=== PATIENT | male | born 1965 | race Two or more races ===

== ENCOUNTER 2016-12-26 11:29 | Emergency (ER) | payer OTHER ==
[2016-12-26] MEDS ORDERED: Sodium Chloride 0.9% 2,000 ML IV ONE (11:52)
[2016-12-26] MEDS ORDERED: methylPREDNISolone Sodium Succinate 125 MG/2 ML SDV IVPUSH ONE (11:53)
--- NOTE | 2016-12-26 11:59 | EDM.PDOC ---
ED HPI GENERAL MEDICAL PROBLEM - General Chief Complaint: General Stated Complaint: PT WOULD LIKE TO CHECK IN Time Seen by Provider: 12/26/16 11:35 Source of Information: Reports: Patient History Limitations: Reports: No limitations - History of Present Illness INITIAL COMMENTS - FREE TEXT/NARRATIVE: History of present illness: [50-year-old male comes in presenting with complaints of exacerbation, as well as chronic dehydration. Patient indicates that he is excessively which he cannot seem to drink enough fluids to maintain hydrated status. Patient indicates when he feels dehydrated he requires IV hydration to rebalance him or he gets progressively sicker and his eczema gets worse.] Review of systems: As per history of present illness and below otherwise all systems reviewed and negative. Past medical history: As per history of present illness and as reviewed below otherwise noncontributory. Surgical history: As per history of present illness and as reviewed below otherwise noncontributory. Social history: No reported history of drug or alcohol abuse. Family history: As per history of present illness and as reviewed below otherwise noncontributory. Physical exam: HEENT: Atraumatic, normocephalic, pupils reactive, negative for conjunctival pallor or scleral icterus, mucous membranes moist, throat clear, neck supple, nontender, trachea midline. Lungs: Clear to auscultation, breath sounds equal bilaterally, chest nontender. Heart: S1S2, regular, negative for clicks, rubs, or JVD. Abdomen: Soft, nondistended, nontender. Negative for masses or hepatosplenomegaly. Negative for costovertebral tenderness. Pelvis: Stable nontender. Genitourinary: Deferred. Rectal: Deferred. Extremities: Atraumatic, negative for cords or calf pain. Neurovascular unremarkable. Neuro: Awake, alert, oriented. Cranial nerves II through XII unremarkable. Cerebellum unremarkable. Motor and sensory unremarkable throughout. Exam nonfocal. Skin: Areas on extremities as well as trunk and neck noted to have various stages of eczema. Diagnostics: [CBC, CMP, hemoglobin A1c] Therapeutics: [Liters of IV fluid] Impression: [Asthma exacerbation, dehydration,] Plan: [Medrol Dosepak, hydration here] Definitive disposition and diagnosis as appropriate pending reevaluation and review of above. right flank Pain Score (Numeric/FACES): 5 - Related Data Allergies Allergy/AdvReac Type Severity Reaction Status Date / Time No Known Allergies Allergy Verified 12/26/16 11:57 Home Meds: Home Meds methylPREDNISolone [Medrol] 4 mg PO DAILY #21 tab.ds.pk 12/26/16 [Rx] ED ROS GENERAL - Review of Systems Review Of Systems: See Below (See history of present illness) ED EXAM, GENERAL - Physical Exam Exam: See Below (History of present illness) Course - Vital Signs Last Recorded V/S: Last Vital Signs Temp 36.2 C 12/26/16 11:57 Pulse 85 12/26/16 11:57 Resp 18 12/26/16 11:57 BP 170/104 H 12/26/16 11:57 Pulse Ox 96 12/26/16 11:57 - Orders/Labs/Meds Orders: Active Orders 24 hr Category Date Time Status COMPREHENSIVE METABOLIC PN,CMP [CHEM] Stat Lab 12/26/16 11:57 Received Sodium Chloride 0.9% [Normal Saline] 2,000 ml Med 12/26/16 11:52 Active IV STAT Medication Orders Sodium Chloride (Normal Saline) 2,000 mls @ 999 mls/hr IV STAT ONE Stop: 12/26/16 13:52 Last Admin: 12/26/16 12:12 Dose: 999 mls/hr Labs: Laboratory Tests 12/26/16 12/26/16 Range/Units 11:57 11:57 WBC 6.64 (4.0-11.0) K/uL RBC 4.70 (4.50-5.90) M/uL Hgb 15.8 (13.0-17.0) g/dL Hct 44.0 (38.0-50.0) % MCV 93.6 (80.0-98.0) fL MCH 33.6 H (27.0-32.0) pg MCHC 35.9 (31.0-37.0) g/dL RDW Std Deviation 43.1 (28.0-62.0) fl RDW Coeff of Ade 13 (11.0-15.0) % Plt Count 274 (150-400) K/uL MPV 10.90 (7.40-12.00) fL Neut % (Auto) 34.9 L (48.0-80.0) % Lymph % (Auto) 51.5 H (16.0-40.0) % [place] % (Auto) 10.7 (0.0-15.0) % Eos % (Auto) 2.6 (0.0-7.0) % Baso % (Auto) 0.3 (0.0-1.5) % Neut # (Auto) 2.3 (1.4-5.7) K/uL Lymph # (Auto) 3.4 H (0.6-2.4) K/uL [place] # (Auto) 0.7 (0.0-0.8) K/uL Eos # (Auto) 0.2 (0.0-0.7) K/uL Baso # (Auto) 0.0 (0.0-0.1) K/uL Nucleated RBC % 0.0 /100WBC Nucleated RBCs # 0 K/uL Hemoglobin A1c 5.5 (0.0-6.0) % Meds: Medications Generic Name Dose Route Start Last Admin Trade Name Freq PRN Reason Stop Dose Admin Sodium Chloride 2,000 mls @ 999 mls/hr 12/26/16 11:52 12/26/16 12:12 Normal Saline IV 12/26/16 13:52 999 mls/hr STAT ONE Administration Discontinued Medications Generic Name Dose Route Start Last Admin Trade Name Freq PRN Reason Stop Dose Admin Methylprednisolone Sodium Succinate 125 mg 12/26/16 11:53 12/26/16 12:12 Solu-Medrol IVPUSH 12/26/16 11:54 125 mg ONETIME ONE Administration Departure - Departure Time of Disposition: 12:26 Disposition: Home, Self-Care 01 Condition: good Clinical Impression: Dehydration symptoms Eczema Qualifiers: Eczema type: unspecified Qualified Code(s): L30.9 - Dermatitis, unspecified Clinical Impression: (Ruled Out): Dehydration Prescriptions: methylPREDNISolone [Medrol] 4 mg PO DAILY #21 tab.ds.pk Forms: ED Department Discharge Additional Instructions: The following information is given to patients seen in the emergency department who are being discharged to home. This information is to outline your options for follow-up care. We provide all patients seen in our emergency department with a follow-up referral. The need for follow-up, as well as the timing and circumstances, are variable depending upon the specifics of your emergency department visit. If you don't have a primary care physician on staff, we will provide you with a referral. We always advise you to contact your personal physician following an emergency department visit to inform them of the circumstance of the visit and for follow-up with them and/or the need for any referrals to a consulting specialist. The emergency department will also refer you to a specialist when appropriate. This referral assures that you have the opportunity for follow-up care with a specialist. All of these measure are taken in an effort to provide you with optimal care, which includes your follow-up. Under all circumstances we always encourage you to contact your private physician who remains a resource for coordinating your care. When calling for follow-up care, please make the office aware that this follow-up is from your recent emergency room visit. If for any reason you are refused follow-up, please contact the [facility] Emergency Department at and asked to speak to the emergency department charge nurse. Take medication as directed Followup with primary care provider as discussed Return to ER as needed as discussed [facility] [address] [place] [id number] - My Orders Last 24 Hours: My Active Orders 12/26/16 11:52 Sodium Chloride 0.9% [Normal Saline] 2,000 ml IV STAT 12/26/16 11:57 COMPREHENSIVE METABOLIC PN,CMP [CHEM] Stat - Assessment/Plan Last 24 Hours: My Active Orders 12/26/16 11:52 Sodium Chloride 0.9% [Normal Saline] 2,000 ml IV STAT 12/26/16 11:57 COMPREHENSIVE METABOLIC PN,CMP [CHEM] Stat
[2016-12-26 12:57] LABS: CHLORIDE,CL 107 mmol/L (98-110); SODIUM,NA 138 mmol/L (136-146)
[2016-12-26] MEDS ORDERED: cloNIDine 0.1 MG Tab PO ONE (12:59)
[2016-12-26 13:40] VITALS: BP 158/94
== END 2016-12-26 13:52 | disposition home or self-care (01) ==
LOC: MW.ED 11:29
DX: J45.901 Unspecified asthma with (acute) exacerbation (principal); L30.9 Dermatitis, unspecified; E86.0 Dehydration
CPT/HCPCS: 36415; 80053; 83036; 85025; 96361; 96374; 99283; A9270; J2930; J7040; 99284

== ENCOUNTER → 2016-12-28 | Outpatient (CLI) | payer OTHER ==
[2016-12-28 10:47] LABS: CHLORIDE,CL 104 mmol/L (98-110); SODIUM,NA 139 mmol/L (136-146)
== END ==
LOC: MW.CHFP 09:47
PROVIDERS: ATTEND Physician Assistant
DX: I10 Essential (primary) hypertension (principal)
CPT/HCPCS: 36415; 80053; 80061; 93005

== ENCOUNTER 2018-04-01 11:31 | Emergency (ER) | payer SELFPAY ==
--- NOTE | 2018-04-01 12:14 | EDM.PDOC ---
ED HPI GENERAL MEDICAL PROBLEM - General Chief Complaint: ENT Problem Stated Complaint: PAIN ON LEFT SIDE OF HIS FACE Time Seen by Provider: 04/01/18 11:41 Source of Information: Reports: Patient, Family History Limitations: Reports: No Limitations - History of Present Illness INITIAL COMMENTS - FREE TEXT/NARRATIVE: HISTORY AND PHYSICAL: []Patient is a 52-year-old male who presented to the emergency room today with left jaw pain getting worse over the past 3 days. History of Present Illness: [He states that this pain has been going on and off for the past several weeks, however, this morning when he woke up the pain became to the point where he thought he needed to come in. He describes the pain as a burning sensation around his left side of his jaw. He states that he is unsure if it's related to his teeth or if he has TMJ. He has been taking ibuprofen to treat the pain, and has taken about 10 ibuprofen and one sitting without relief of his pain. He states the pain does not radiate anywhere else but and has jaw he has never had pain like this before. He states that he does see a dentist as he has a partial on top, but hasn't been there in a while. He is a smoker for the past 30 years and has been smoking about a pack and a half per week. He states that he does have a cough every morning, but attributes this to his smoking. He does not have pain with eating, or movement of his jaw. He has been able to eat and drink per his normal. He does admit to taking performance-enhancing supplements on a daily basis similar to extra testosterone. He denies ever, chills, weight changes, shortness of breath, chest tightness, left arm pain, or syncope. He denies dysphasia, heartburn, nausea, vomiting, or abdominal pain.] Patient has not taken his blood pressure medication today as he got up and came to the ER Review of Systems: As per history of present illness and below otherwise all systems reviewed and negative. Past medical history: As per history of present illness and as reviewed below otherwise noncontributory. Surgical history: As per history of present illness and as reviewed below otherwise noncontributory. Social history: No reported history of drug or alcohol abuse. Family history: As per history of present illness and as reviewed below otherwise noncontributory. Physical exam: Alert and oriented gentleman answering questions appropriately in full sentences without any shortness of breath. He is nontoxic in appearance. General: Patient is sitting comfortably on exam table, in no acute distress. HEENT: There is minimal edema lateral to the left mandible with mild pain to palpation, Atraumatic, normocehpalic, pupils reactive, negative for conjunctival pallor or scleral icterus, mucous membranes moist, throat clear, neck supple, trachea midline. Lungs: Clear to auscultation, breath sounds equal bilaterally, chest non tender. Heart: S1S2, regular, negative for clicks, rubs, or JVD. Abdomen: Soft, nondistended, nontender. Negative for masses or hepatossplenmegaly. Negative for costovertebral tenderness. Pelvis: Stable nontender. Genitourinary: Deferred. Rectal: Deferred Extremities: Atraumatic, negative for cords or calf pain. Neurovascular unremarkable. Neuro: Awake, alert, oriented. Cranial nerves II through XII unremarkable. Cerebellum unremarkable. Motor and sensory unremarkable throughout. Exam nonfocal. Discussed with the patient and family lab results were negative for any coronary difficulties or infections Diagnostics: [CBC, cmp, ekg, soft tissue neck xray] Therapeutics: []Toradol 60 IM Impression: [Left mandible /neck pain uncontrolled htn, nicotine/smoking dependence] Plan: []HOme tylenol alternating with Ibuprofen for pain(only as prescribed on the bottle) One baby aspirin daily Amoxicillin 875 twice a day 10 days Follow-up with your primary care provider Recommend that you check your blood pressure at home weekly Definitive disposition and diagnosis as appropriate pending reevaluation and review of above. Left Face Pain Score (Numeric/FACES): 6 - Related Data Allergies Allergy/AdvReac Type Severity Reaction Status Date / Time No Known Allergies Allergy Verified 04/01/18 11:33 Home Meds: Home Meds Amoxicillin 875 mg PO BID #20 tab 04/01/18 [Rx] Lisinopril [Prinivil] 10 mg PO DAILY 04/01/18 [History] Omeprazole 40 mg PO DAILY 04/01/18 [History] Past Medical History Cardiovascular History: Reports: Hypertension - Infectious Disease History Infectious Disease History: Reports: Hepatitis C Social & Family History - Family History Family Medical History: Noncontributory - Tobacco Use Smoking Status *Q: Current Every Day Smoker Years of Tobacco use: 30 Packs/Tins Daily: 0.1 - Recreational Drug Use Recreational Drug Use: Yes Drug Use in Last 12 Months: Yes Recreational Drug Type: Reports: Marijuana/Hashish ED ROS ENT - Review of Systems Review Of Systems: ROS reveals no pertinent complaints other than HPI. ED EXAM, ENT - Physical Exam Exam: See Below (See dictation) Course - Vital Signs Last Recorded V/S: Last Vital Signs Temp 36.6 C 04/01/18 13:14 Pulse 83 04/01/18 13:14 Resp 18 04/01/18 13:14 BP 168/92 H 04/01/18 13:14 Pulse Ox 97 04/01/18 13:14 - Orders/Labs/Meds Orders: Active Orders 24 hr Category Date Time Status EKG Documentation Completion [RC] STAT Care 04/01/18 12:14 Active COMPREHENSIVE METABOLIC PN,CMP [CHEM] Stat Lab 04/01/18 13:00 Received Labs: Laboratory Tests 04/01/18 Range/Units 13:00 WBC 6.70 (4.0-11.0) K/uL RBC 4.51 (4.50-5.90) M/uL Hgb 15.1 (13.0-17.0) g/dL Hct 42.4 (38.0-50.0) % MCV 94.0 (80.0-98.0) fL MCH 33.5 H (27.0-32.0) pg MCHC 35.6 (31.0-37.0) g/dL RDW Std Deviation 43.7 (28.0-62.0) fl RDW Coeff of Ade 13 (11.0-15.0) % Plt Count 271 (150-400) K/uL MPV 10.80 (7.40-12.00) fL Neut % (Auto) 51.5 (48.0-80.0) % Lymph % (Auto) 39.9 (16.0-40.0) % [place] % (Auto) 7.2 (0.0-15.0) % Eos % (Auto) 1.3 (0.0-7.0) % Baso % (Auto) 0.1 (0.0-1.5) % Neut # (Auto) 3.5 (1.4-5.7) K/uL Lymph # (Auto) 2.7 H (0.6-2.4) K/uL [place] # (Auto) 0.5 (0.0-0.8) K/uL Eos # (Auto) 0.1 (0.0-0.7) K/uL Baso # (Auto) 0.0 (0.0-0.1) K/uL Nucleated RBC % 0.0 /100WBC Nucleated RBCs # 0 K/uL Meds: Medications Discontinued Medications Generic Name Dose Route Start Last Admin Trade Name Kwadwo PRN Reason Stop Dose Admin Ketorolac Tromethamine 60 mg 04/01/18 12:36 04/01/18 12:44 Toradol IM 04/01/18 12:37 60 mg ONETIME ONE Administration Departure - Departure Time of Disposition: 13:26 Disposition: Home, Self-Care 01 Condition: Good Clinical Impression: Neck pain on left side - Discharge Information *PRESCRIPTION DRUG MONITORING PROGRAM REVIEWED*: Not Applicable *COPY OF PRESCRIPTION DRUG MONITORING REPORT IN PATIENT [place]: Not Applicable Prescriptions: Amoxicillin 875 mg PO BID #20 tab Referrals: Noé Ignacio PA [Primary Care Provider] - Forms: ED Department Discharge Additional Instructions: The following information is given to patients seen in the emergency department who are being discharged to home. This information is to outline your options for follow-up care. We provide all patients seen in our emergency department with a follow-up referral. The need for follow-up, as well as the timing and circumstances, are variable depending upon the specifics of your emergency department visit. If you don't have a primary care physician on staff, we will provide you with a referral. We always advise you to contact your personal physician following an emergency department visit to inform them of the circumstance of the visit and for follow-up with them and/or the need for any referrals to a consulting specialist. The emergency department will also refer you to a specialist when appropriate. This referral assures that you have the opportunity for followup care with a specialist. All of these measure are taken in an effort to provide you with optimal care, which includes your followup. Under all circumstances we always encourage you to contact your private physician who remains a resource for coordinating your care. When calling for followup care, please make the office aware that this follow-up is from your recent emergency room visit. If for any reason you are refused follow-up, please contact the [facility] emergency department at and asked to speak to the emergency department charge nurse. You may take ibuprofen alternating with Tylenol 2 tab every 3-4 hours Please take a baby aspirin 81 mg daily to reduce your risk of stroke Antibiotic of amoxicillin has been electronically sent to your pharmacy Check your blood pressure weekly and write this down Over the next 4-5 weeks if this does not become normal at home you need to be reevaluated I'll up with your primary care provider Return to the emergency department as - My Orders Last 24 Hours: My Active Orders 04/01/18 12:14 EKG Documentation Completion [RC] STAT 04/01/18 13:00 COMPREHENSIVE METABOLIC PN,CMP [CHEM] Stat - Assessment/Plan Last 24 Hours: My Active Orders 04/01/18 12:14 EKG Documentation Completion [RC] STAT 04/01/18 13:00 COMPREHENSIVE METABOLIC PN,CMP [CHEM] Stat
[2018-04-01] MEDS ORDERED: Ketorolac 60 MG/2 ML SDV IM ONE (12:36)
--- NOTE | 2018-04-01 12:43 | CR ---
EXAMINATION: Two-view chest (PA and Lateral views). HISTORY: Shortness of breath. FINDINGS: The trachea is midline. The cardiomediastinal silhouette is within normal limits. No pulmonary infilt rates, effusions or pneumothorax. Osseous structures appear unremarkable. IMPRESSION: No acute cardiopulmonary process.
--- NOTE | 2018-04-01 12:49 | CR ---
EXAMINATION: Soft tissue neck HISTORY: Pain COMPARISON: None TECHNIQUE: AP and lateral views FINDINGS: Moderate degenerative changes noted within the cervical spine. Prevertebral soft tissues ar e normal. The epiglottis is normal. No subglottic tracheal narrowing. Mild prominence of the adenoid soft tissues. No abnormal calcifications noted. Visualized osseous structures otherwise appear intact . IMPRESSION: Unremarkable soft tissue neck.
[2018-04-01 13:52] VITALS: BP 165/102
[2018-04-01 13:55] LABS: CHLORIDE,CL 105 mmol/L (98-107); SODIUM,NA 140 mmol/L (136-148)
== END 2018-04-01 13:53 | disposition home or self-care (01) ==
LOC: MW.ED 11:31
DX: M54.2 Cervicalgia (principal); F17.210 Nicotine dependence, cigarettes, uncomplicated; Z79.899 Other long term (current) drug therapy
CPT/HCPCS: 36415; 70360; 71046; 80053; 85025; 93005; 96372; 99284; J1885

== ENCOUNTER 2024-09-15 13:55 | Emergency (ER) | payer BC ==
[2024-09-15] MEDS ORDERED: Sodium Chloride 0.9% 10 ML Syringe FLUSH PRN (14:11)
[2024-09-15] MEDS ORDERED: Sodium Chloride 0.9% 2.5 ML Syringe FLUSH PRN (14:11)
[2024-09-15 14:20] LABS: BASOPHILS ABSOLUTE AUTO 0.03 K/uL (0.00-0.20); BASOPHILS PERCENT AUTO 0.5 % (0.0-1.0); EOSINOPHILS ABSOLUTE AUTO 0.16 K/uL (0.00-0.45); EOSINOPHILS PERCENT AUTO 2.5 % (0.0-6.0); HEMATOCRIT 43.7 % (42.0-52.0); HEMOGLOBIN 15.5 g/dL (14.0-18.0); IMMATURE GRAN ABSOLUTE AUTO 0.02 K/uL (0.00-0.05); IMMATURE GRAN PERCENT AUTO 0.3 % (0.0-0.4); LYMPHOCYTES ABSOLUTE AUTO 3.13 K/uL (1.00-4.80); LYMPHOCYTES PERCENT AUTO 48.5 % (24.0-44.0); MEAN CORPUSCULAR HEMOGLOBIN 33.3 pg (28.0-32.0); MEAN CORPUSCULAR HGB CONC 35.5 g/dL (32.0-36.0); MEAN CORPUSCULAR VOLUME 93.8 fL (83.0-99.0); MONOCYTES ABSOLUTE AUTO 0.55 K/uL (0.00-0.80); MONOCYTES PERCENT AUTO 8.5 % (0.0-8.0); NEUTROPHILS ABSOLUTE AUTO 2.56 K/uL (1.80-7.70); NEUTROPHILS PERCENT AUTO 39.7 % (41.0-71.0); PLATELET COUNT,PLT 222 K/uL (150-400); RED BLOOD CELL COUNT 4.66 M/uL (4.52-5.90); WHITE BLOOD CELL COUNT,WBC 6.45 K/uL (3.9-11.3)
[2024-09-15 14:21] VITALS: BP 195/99; PULSE 98
[2024-09-15 14:53] LABS: A/G RATIO 0.8 (0.9-1.6); ALBUMIN 3.6 g/dL (3.4-5.0); BILIRUBIN TOTAL 0.4 mg/dL (0.2-1.0); CALCIUM 8.5 mg/dL (8.5-10.1); CARBON DIOXIDE,CO2 31.9 mmol/L (21.0-32.0); CREATININE 1.2 mg/dL (0.8-1.3); EST CRCL DRUG DOSING (CG) 62.54 mL/min; MAGNESIUM 1.9 mg/dL (1.8-2.4); POTASSIUM,K 3.7 mmol/L (3.5-5.1); PROTEIN TOTAL,TP 8.1 g/dL (6.4-8.2)
== END 2024-09-15 16:17 | disposition home or self-care (01) ==
LOC: MW.ED 13:55
DX: R06.02 Shortness of breath (principal); I10 Essential (primary) hypertension; F17.210 Nicotine dependence, cigarettes, uncomplicated; Z79.899 Other long term (current) drug therapy; Z75.8 Other problems related to medical facilities and other health care
CPT/HCPCS: 36415; 71045; 71045-26; 80053; 83690; 83735; 84484; 85025; 85379; 87428-QW; 93005; 99285